=== PATIENT | male | born 1940 | race Caucasian/White ===

== ENCOUNTER → 2018-03-06 | Outpatient (CLI) | payer MEDICARE, OTHER ==
--- NOTE | 2018-03-06 17:32 | ECHOF ---
Referral Reason:R00.2 Palpitations MEASUREMENTS -------- HEIGHT: 182.9 cm WEIGHT: 88.5 kg BP: RVIDd: 2.8 cm (< 3.3) IVSd: 1.3 cm (0.6 - 1.1) LVIDd: 4.5 cm (3.9 - 5.3) LVPWd: 1.3 cm (0.6 - 1.1) IVSs: 1.6 cm LVIDs: 3.7 cm LVPWs: 1.3 cm LA Diam: 3.9 cm (2.7 - 3.8) LAESV Index (A-L): 20.50 ml/m Ao Diam: 3.1 cm (2.0 - 3.7) AV Cusp: 2.0 cm (1.5 - 2.6) LA Diam: 3.9 cm (2.7 - 3.8) EPSS: 0.3 cm MV E Joselo: 0.56 m/s MV DecT: 309 ms MV A Joselo: 0.99 m/s MV E/A Ratio: 0.57 RAP: 5.00 mmHg RVSP: 15.30 mmHg MV EF SLOPE: 68.17 mm/s (70 - 150) MV EXCURSION: 1.44 cm (> 18.000) FINDINGS -------- Sinus rhythm. This was a technically good study. The left ventricular size is normal. There is mild concentric left ventricular hypertrophy. There is normal global left ventricular contractility. Overall left ventricular systolic function is nor mal with, an EF between 55 - 60 %. The right ventricle is normal in size. The left atrial size is normal. The right atrial size is normal. The aortic valve is trileaflet, and appears structurally normal. No aortic stenosis or regurgitation. The mitral valve is normal. Mild mitral regurgitation is present. Mild tricuspid regurgitation present. There is no evidence of pulmonary hypertension. The right v entricular systolic pressure, as measured by Doppler, is 15.30mmHg. There is no pulmonic regurgitation present. The aortic root size is normal. There is no pericardial effusion. CONCLUSIONS -------- 1. Sinus rhythm. 2. This was a technically good study. 3. There is mild concentric left ventricular hypertrophy. 4. There is normal global left ventricular contractility. 5. Overall left ventricular systolic function is normal with, an EF between 55 - 60 %. 6. The left atrial size is normal. 7. The aortic valve is trileaflet, and appears structurally normal. No aortic stenosis or regurgitati on. 8. Mild mitral regurgitation is present. 9. Mild tricuspid regurgitation present. 10. There is no evidence of pulmonary hypertension. 11. There is no pulmonic regurgitation present. 12. The aortic root size is normal. 13. There is no pericardial effusion. CORRECTIONS CASEWORKER: Marlene Alejandro RDCS
== END | disposition home or self-care (01) ==
LOC: RADECHMAIN 10:28
PROVIDERS: ATTEND Family Medicine
DX: I08.1 Rheumatic disorders of both mitral and tricuspid valves (principal)
CPT/HCPCS: 93306

== ENCOUNTER → 2020-08-13 | Outpatient (CLI) | payer MEDICARE, OTHER ==
[~2020-08-13] MED LIST: REGADENOSON 0.4 MG/5 ML SYRINGE IV PRN
--- NOTE | 2020-08-13 12:12 | NM ---
EXAMINATION TYPE: NM stress lexiscan cardiolite DATE OF EXAM: 08/13/2020 COMPARISON: NONE HISTORY: Angina TECHNIQUE: After the intravenous administration of 9.69 mCi Tc 99m Sestamibi - Cardiolite resting SP ECT images acquired 45 minutes post injection. At peak stress 23.2 mCi Tc 99m Sestamibi - Stress images obtained 30 minutes post injection The patient was stressed with 0.4mg Lexiscan. FINDINGS: There is a defect on the posterior lateral wall. This defect is larger on stress images compatible st ress-induced ischemic change. No reversible stress defects on Spect images Wall motion is normal Ejection fraction is calculated to be 89 %. IMPRESSION: 1. Stress-induced ischemic change posterior lateral wall. This may be superimposed on a small prior i nfarct in this region
--- NOTE | 2020-08-13 12:18 | P.STRESS ---
- Stress Test Note Stress Test Results/Findings: Exam Performed: NM stress lexiscan cardiolite Exam Date: 08/13/20 Reason for Exam: Angina Height: 6 ft 3 in Weight: 88.451 kg Protocol: Stage: I Duration of Exercise: 3 Resting Heart Rate: 73 Resting Blood Pressure: 142/47 Maximum Achieved Heart Rate: 89 Maximum Achieved Blood Pressure: 160/58 85% PMHR: 100% PMHR: METS: Technologist Comment: Stress Test Results/Findings: This is a 79-year-old gentleman with history of diabetes, smoking history and family history of ischemic heart disease being evaluated for cardiac status and chest pains. Stress data: Baseline EKG showed sinus rhythm with normal OH and QRS duration. A standard dose of Lexiscan was infused. EKGs taken during and after infusion has not been any acute changes. Patient did not express any chest pain. Final impression: #1. Negative Lexiscan stress test #2. Report on the nuclear images to be provided by radiologist.
--- NOTE | 2020-08-13 12:50 | ECHOF ---
Referral Reason:I20.8 angina MEASUREMENTS -------- HEIGHT: 182.9 cm WEIGHT: 88.5 kg BP: RVIDd: 3.5 cm (< 3.3) IVSd: 1.1 cm (0.6 - 1.1) LVIDd: 4.3 cm (3.9 - 5.3) LVPWd: 1.1 cm (0.6 - 1.1) IVSs: 1.4 cm LVIDs: 3.1 cm LVPWs: 1.4 cm LAESV Index (A-L): 25.41 ml/m Ao Diam: 3.1 cm (2.0 - 3.7) AV Cusp: 1.9 cm (1.5 - 2.6) LA Diam: 4.1 cm (2.7 - 3.8) MV EXCURSION: 16.963 mm (> 18.000) MV EF SLOPE: 85 mm/s (70 - 150) EPSS: 0.2 cm MV E Joselo: 0.48 m/s MV A Joselo: 0.88 m/s MV E/A Ratio: 0.54 RAP: 5.00 mmHg RVSP: 12.99 mmHg FINDINGS -------- Sinus rhythm. This was a technically good study. LV size, wall thickness and systolic function are normal, with an EF greater than 55%. The left heriberto tricular size is normal. The right ventricle is normal in size. Normal LA size by volume 22+/-6 ml/m2. The right atrial size is normal. The aortic valve is trileaflet, and appears structurally normal. No aortic stenosis or regurgitation. Mild mitral regurgitation is present. Mild tricuspid regurgitation present. Right ventricular systolic pressure is normal at < 35 mmHg. There is no pulmonic regurgitation present. The aortic root size is normal. There is no pericardial effusion. CONCLUSIONS -------- 1. LV size, wall thickness and systolic function are normal, with an EF greater than 55%. 2. The left ventricular size is normal. 3. The right ventricle is normal in size. 4. Normal LA size by volume 22+/-6 ml/m2. 5. The right atrial size is normal. 6. The aortic valve is trileaflet, and appears structurally normal. No aortic stenosis or regurgitati on. 7. Mild mitral regurgitation is present. 8. Mild tricuspid regurgitation present. 9. The aortic root size is normal. 10. There is no pericardial effusion. P[employer]AND[employer]APE ARCHITECT: Marlene Alejandro RDCS
--- NOTE | 2020-08-14 08:36 | ECHOL ---
Stress Test Results/Findings: Exam Performed: NM stress lexiscan cardiolite Exam Date: 08/13/20 Reason for Exam: Angina Height: 6 ft 3 in Weight: 88.451 kg Protocol: Stage: I Duration of Exercise: 3 Resting Heart Rate: 73 Resting Blood Pressure: 142/47 Maximum Achieved Heart Rate: 89 Maximum Achieved Blood Pressure: 160/58 85% PMHR: 100% PMHR: METS: Technologist Comment: Stress Test Results/Findings: This is a 79-year-old gentleman with history of diabetes, smoking history and family history of ischemic heart disease being evaluated for cardiac status and chest pains. Stress data: Baseline EKG showed sinus rhythm with normal UT and QRS duration. A standard dose of Lexiscan was infused. EKGs taken during and after infusion has not been any acute changes. Patient did not express any chest pain. Final impression: #1. Negative Lexiscan stress test #2. Report on the nuclear images to be provided by radiologist. BRAYAN
== END | disposition home or self-care (01) ==
LOC: RADNMMAIN 07:31
PROVIDERS: ATTEND Internal Medicine Interventional Cardiology
DX: I08.1 Rheumatic disorders of both mitral and tricuspid valves (principal); I99.8 Other disorder of circulatory system; I20.8 Other forms of angina pectoris; E11.9 Type 2 diabetes mellitus without complications; Z82.49 Family history of ischemic heart disease and other diseases of the circulatory system; Z87.891 Personal history of nicotine dependence
CPT/HCPCS: 93017; 93306; 78452; A9500; J2785